=== PATIENT | female | born 1990 | race Caucasian/White ===

== ENCOUNTER 2017-11-23 13:11 | Observation (INO) | payer OTHER ==
[2017-11-23 13:57] LABS: BILIRUBIN,URINE NEGATIVE (NEG); CLARITY,URINE CLEAR; COLOR,URINE YELLOW; GLUCOSE,URINE NEGATIVE (NEG); NITRITE,URINE NEGATIVE (NEG); PROTEIN,URINE NEGATIVE (NEG-TRACE); UROBILINOGEN,URINE 0.2 mg/dL (0.2 mg/dL)
[2017-11-23] MEDS ORDERED: IV RINGERS,LACTATED 1000ML 1,000 ML IV (14:00)
[2017-11-23 14:12] LABS: BACTERIA,URINE FEW /HPF (0-FEW); RBC,URINE OCC /HPF (0-2); SQUAMOUS EPITHELIAL CELL,UR MANY /LPF
[2017-11-23 14:50] LABS: ADD MAN DIFF? NO
[2017-11-23 14:53] LABS: BASO # 0.1 x10^3/uL (0.0-0.2); BASO % 1 % (0-3); EOS # 0.1 x10^3/uL (0.0-0.7); EOS % 1 % (0-3); HEMOGLOBIN 10.7 g/dL (12.0-15.5); LYMPH # 2.7 x10^3/uL (1.0-4.8); LYMPH % 23 % (24-48); MEAN CORPUSCULAR HEMOGLOBIN 27 pg (25-35); MEAN CORPUSCULAR HGB CONC 32 g/dL (31-37); MEAN CORPUSCULAR VOLUME 83 fL (79-100); MONO # 0.5 x10^3/uL (0.0-1.1); MONO % 4 % (0-9); NEUT # 8.5 x10^3uL (1.8-7.7); NEUT % 72 % (31-73); PLATELET COUNT 268 x10^3/uL (140-400); RED CELL DISTRIBUTION WIDTH 13.8 % (11.5-14.5); WHITE BLOOD COUNT 11.9 x10^3/uL (4.0-11.0)
[2017-11-23 15:10] LABS: ALBUMIN 2.2 g/dL (3.4-5.0); ALBUMIN/GLOBULIN RATIO 0.6 (1.0-1.7); ALK PHOS 186 U/L (46-116); ALT (SGPT) 12 U/L (14-59); AMYLASE 41 U/L (25-115); ANION GAP 9 (6-14); AST (SGOT) 15 U/L (15-37); BLOOD UREA NITROGEN 10 mg/dL (7-20); BUN/CREATININE RATIO 14 (6-20); CALCIUM 8.9 mg/dL (8.5-10.1); CARBON DIOXIDE 27 mmol/L (21-32); CHLORIDE 104 mmol/L (98-107); CREATININE 0.7 mg/dL (0.6-1.0); GLUCOSE 73 mg/dL (70-99); LIPASE 77 U/L (73-393); POTASSIUM 4.1 mmol/L (3.5-5.1); SODIUM 140 mmol/L (136-145); TOTAL BILIRUBIN 0.2 mg/dL (0.2-1.0); TOTAL PROTEIN 6.1 g/dL (6.4-8.2)
[2017-11-23] MEDS: LIDO:MAALOX 1:1 20 ML SINGLE DOSE. SWSW (15:29)
== END 2017-11-23 18:00 | disposition home or self-care (01) ==
LOC: 3 SO LND 13:11
DX: O62.9 Abnormality of forces of labor, unspecified (principal); O26.893 Other specified pregnancy related conditions, third trimester; R51 Headache; Z3A.37 37 weeks gestation of pregnancy
CPT/HCPCS: 36415; 80053; 81001; 82150; 83690; 85025; 87086; G0378; G0379

== ENCOUNTER 2017-11-26 18:07 | Inpatient (IN) | payer OTHER ==
[2017-11-26] MEDS ORDERED: OXYTOCIN 30 UNIT/500 ML PREMIX 500 ML IV ×2 (18:45→21:00)
[2017-11-26] MEDS ORDERED: IBUPROFEN 800 MG TABLET. PO (18:45)
[2017-11-26] MEDS ORDERED: LIDOCAINE 1% PF 30 ML VIAL. INJ (18:45)
[2017-11-26] MEDS ORDERED: TERBUTALINE 1 MG/ML VIAL. SQ (18:45)
[2017-11-26] MEDS ORDERED: AMPICILLIN SODIUM 1 GM in IV NORMAL SALINE 50ML 50 ML IV (18:45)
[2017-11-26] MEDS ORDERED: ONDANSETRON PF 4 MG/2 ML VIAL. IV (18:45)
[2017-11-26] MEDS ORDERED: BUTORPHANOL 2 MG/ML VIAL. IV (18:45)
[2017-11-26] MEDS ORDERED: 0.9 % SODIUM CHLORIDE 10 ML DISP.SYRIN. IV ×2 (18:45→21:00)
[2017-11-26] MEDS ORDERED: CITRIC ACID/SODIUM CITRATE 30 ML SOLUTION. PO (18:45)
[2017-11-26 18:53] LABS: BILIRUBIN,URINE NEGATIVE (NEG); CLARITY,URINE CLEAR; COLOR,URINE YELLOW; GLUCOSE,URINE NEGATIVE (NEG); NITRITE,URINE NEGATIVE (NEG); PH,URINE 6.5; PROTEIN,URINE NEGATIVE (NEG-TRACE)
[2017-11-26] MEDS: fentaNYL PF VIAL 100 MCG/2 ML VIAL IV (18:56)
[2017-11-26] MEDS: IV RINGERS,LACTATED 1000ML 1,000 ML IV (18:58)
[2017-11-26] MEDS: AMPICILLIN SODIUM IV Push 1 GM VIAL. IVP (18:58)
[2017-11-26] MEDS ORDERED: AMPICILLIN SODIUM 2 GM in IV NORMAL SALINE 100ML 100 ML IV (19:00)
[2017-11-26] MEDS: AMPICILLIN SODIUM IV Push 2 GM VIAL. IVP (19:00)
[2017-11-26 19:07] LABS: BARBITURATES NEG (NEG); BENZODIAZEPINES NEG (NEG); CANNABINOIDS NEG (NEG); COCAINE NEG (NEG); METHADONE NEG (NEG); OPIATES NEG (NEG); PHENCYCLIDINE NEG (NEG)
[2017-11-26 19:08] LABS: AMPHETAMINE/METHAMPHETAMINE POS (NEG); ETHANOL, URINE NEG (NEG)
[2017-11-26 19:16] LABS: ADD MAN DIFF? NO
[2017-11-26 19:18] LABS: BASO % 0 % (0-3); EOS % 0 % (0-3); HEMATOCRIT 32.3 % (36.0-47.0); HEMOGLOBIN 10.7 g/dL (12.0-15.5); LYMPH # 2.6 x10^3/uL (1.0-4.8); LYMPH % 23 % (24-48); MEAN CORPUSCULAR HEMOGLOBIN 27 pg (25-35); MEAN CORPUSCULAR HGB CONC 33 g/dL (31-37); MEAN CORPUSCULAR VOLUME 81 fL (79-100); MONO # 0.4 x10^3/uL (0.0-1.1); MONO % 4 % (0-9); NEUT # 8.1 x10^3uL (1.8-7.7); NEUT % 72 % (31-73); PLATELET COUNT 280 x10^3/uL (140-400); RED BLOOD COUNT 3.99 x10^6/uL (3.50-5.40); RED CELL DISTRIBUTION WIDTH 13.6 % (11.5-14.5); WHITE BLOOD COUNT 11.2 x10^3/uL (4.0-11.0)
[2017-11-26 19:29] LABS: BACTERIA,URINE FEW /HPF (0-FEW); RBC,URINE RARE /HPF (0-2); WBC,URINE OCC /HPF (0-4)
[2017-11-26 19:30] LABS: SQUAMOUS EPITHELIAL CELL,UR MOD /LPF
[2017-11-26] MEDS: OXYTOCIN 30 UNIT/500 ML PREMIX 500 ML IV (20:09)
[2017-11-26] MEDS ORDERED: MAG HYDROX/ALUMINUM HYD/SIMETH 30 ML ORAL.SUSP PO (21:00)
[2017-11-26] MEDS ORDERED: HYDROCORTISONE 1% TOPICAL OINTMENT 30GM TUBE. TP (21:00)
[2017-11-26] MEDS ORDERED: ZOLPIDEM 5 MG TABLET. PO (21:00)
[2017-11-26] MEDS ORDERED: diphenhydrAMINE HCL 25 MG CAPSULE PO (21:00)
[2017-11-26] MEDS ORDERED: MMR per PROTOCOL. MC (21:00)
[2017-11-26] MEDS ORDERED: ACETAMINOPHEN 325 MG TABLET. PO (21:00)
[2017-11-26] MEDS ORDERED: MAGNESIUM HYDROXIDE 2,400 MG/30 ML ORAL.SUSP. PO (21:00)
[2017-11-26] MEDS ORDERED: PHENYLEPH/MINERAL OIL/PETROLAT RECTAL OINTMENT 28GM TUBE. RC (21:00)
[2017-11-26] MEDS: BENZOCAINE 20% TOPICAL AEROSOL SPRAY 57GM CAN. TP (23:23)
[2017-11-26] MEDS: IBUPROFEN 800 MG TABLET. PO (23:23)
[2017-11-27] MEDS: oxyCODONE/APAP 5/325 1 TAB TABLET PO ×3 (02:43→15:37)
[2017-11-27 05:15] LABS: ADD MAN DIFF? NO
[2017-11-27 05:23] LABS: BASO # 0.1 x10^3/uL (0.0-0.2); BASO % 1 % (0-3); EOS # 0.1 x10^3/uL (0.0-0.7); EOS % 1 % (0-3); HEMATOCRIT 28.7 % (36.0-47.0); HEMOGLOBIN 9.5 g/dL (12.0-15.5); LYMPH % 27 % (24-48); MEAN CORPUSCULAR HEMOGLOBIN 27 pg (25-35); MEAN CORPUSCULAR HGB CONC 33 g/dL (31-37); MEAN CORPUSCULAR VOLUME 82 fL (79-100); MONO # 0.6 x10^3/uL (0.0-1.1); MONO % 5 % (0-9); NEUT # 7.6 x10^3uL (1.8-7.7); NEUT % 67 % (31-73); PLATELET COUNT 231 x10^3/uL (140-400); RED BLOOD COUNT 3.49 x10^6/uL (3.50-5.40); RED CELL DISTRIBUTION WIDTH 13.8 % (11.5-14.5); WHITE BLOOD COUNT 11.3 x10^3/uL (4.0-11.0)
[2017-11-27] MEDS: IBUPROFEN 800 MG TABLET. PO ×2 (08:31→17:44)
[2017-11-27] MEDS: DOCUSATE SODIUM 100 MG CAPSULE. PO (08:31)
[2017-11-27] MEDS: FERROUS SULFATE 325 MG TABLET. PO ×2 (08:32→17:38)
[2017-11-27 22:08] LABS: RUBELLA IGG ANTIBODY <0.90 index (Immune >0.99)
[2017-11-28] MEDS: oxyCODONE/APAP 5/325 1 TAB TABLET PO ×3 (03:29→18:30)
[2017-11-28] MEDS: FERROUS SULFATE 325 MG TABLET. PO ×2 (09:14→18:31)
[2017-11-28] MEDS: DOCUSATE SODIUM 100 MG CAPSULE. PO (09:14)
[2017-11-28] MEDS: IBUPROFEN 800 MG TABLET. PO ×2 (09:17→16:56)
[2017-11-28 11:20] LABS: HEP B SURFACE ABDY Non Reactive (.)
[2017-11-28] MEDS: DIPHTH,PERTUSS(ACELL),TET TOX 0.5 ML DISP.SYRIN. VAX IM (13:47)
[2017-11-28] MEDS: MEASLES, MUMPS & RUBELLA VACC 0.5 ML VIAL. VAX SQ (13:49)
[2017-11-28 16:15] LABS: RPR Non Reactive (Non Reactive)
[2017-11-28] MEDS: SIMETHICONE 80 MG TAB.CHEW PO (16:56)
[2017-11-28] MEDS: BENZOCAINE 20% TOPICAL AEROSOL SPRAY 57GM CAN. TP (18:30)
[2017-11-29 07:36] LABS: HIV ANTIBODY Non Reactive (Non Reactive)
== END 2017-11-28 18:35 | disposition home or self-care (01) | DRG 775 ==
LOC: 3 SO LND 18:07
PROC: 10E0XZZ Delivery of Products of Conception, External Approach (ICD-10-PCS; principal; 2017-11-26)
DX: O77.0 Labor and delivery complicated by meconium in amniotic fluid (principal); Z37.0 Single live birth; Z3A.38 38 weeks gestation of pregnancy
CPT/HCPCS: 36415; 80307; 81001; 85025; 86593; 86703; 86706; 86762; 86850; 86900; 86901; 90707; 90715; G0379; J0290; J2590; J3010; J7120

== ENCOUNTER 2017-11-29 01:04 | Inpatient (IN) | payer OTHER ==
[2017-11-29] MEDS: IV NORMAL SALINE 1000ML BAG 1,000 ML IV ×4 (02:26→04:00)
[2017-11-29 02:30] LABS: BASO % 0 % (0-3); EOS # 0.1 x10^3/uL (0.0-0.7); EOS % 0 % (0-3); HEMATOCRIT 35.7 % (36.0-47.0); HEMOGLOBIN 11.6 g/dL (12.0-15.5); LYMPH # 1.7 x10^3/uL (1.0-4.8); LYMPH % 6 % (24-48); MEAN CORPUSCULAR HEMOGLOBIN 27 pg (25-35); MEAN CORPUSCULAR HGB CONC 33 g/dL (31-37); MEAN CORPUSCULAR VOLUME 83 fL (79-100); MONO # 0.8 x10^3/uL (0.0-1.1); MONO % 3 % (0-9); NEUT # 25.1 x10^3uL (1.8-7.7); NEUT % 90 % (31-73); PLATELET COUNT 303 x10^3/uL (140-400); RED BLOOD COUNT 4.31 x10^6/uL (3.50-5.40); RED CELL DISTRIBUTION WIDTH 14.4 % (11.5-14.5); WHITE BLOOD COUNT 27.7 x10^3/uL (4.0-11.0)
[2017-11-29] MEDS: ACETAMINOPHEN 500 MG TABLET PO ×2 (02:30)
[2017-11-29 02:31] LABS: ADD MAN DIFF? YES
[2017-11-29 02:40] LABS: PROTHROMBIN TIME PATIENT 12.3 SEC (11.7-14.0)
[2017-11-29 02:42] LABS: ANION GAP 7 (6-14); BLOOD UREA NITROGEN 10 mg/dL (7-20); BUN/CREATININE RATIO 11 (6-20); CALCIUM 9.1 mg/dL (8.5-10.1); CARBON DIOXIDE 27 mmol/L (21-32); CHLORIDE 102 mmol/L (98-107); CREATININE 0.9 mg/dL (0.6-1.0); GFR 76.3; GLUCOSE 73 mg/dL (70-99); POTASSIUM 4.4 mmol/L (3.5-5.1); SODIUM 136 mmol/L (136-145)
[2017-11-29 02:47] LABS: ALBUMIN 2.2 g/dL (3.4-5.0); ALBUMIN/GLOBULIN RATIO 0.4 (1.0-1.7); ALK PHOS 173 U/L (46-116); ALT (SGPT) 13 U/L (14-59); AST (SGOT) 26 U/L (15-37); TOTAL BILIRUBIN 0.3 mg/dL (0.2-1.0); TOTAL PROTEIN 7.1 g/dL (6.4-8.2)
[2017-11-29 02:50] LABS: LACTIC ACID 1.7 mmol/L (0.4-2.0)
[2017-11-29] MEDS: PIPERACILLIN/TAZOBACTAM 3.375 GM in IV NORMAL SALINE 50ML 50 ML IV ×3 (03:09→15:00)
[2017-11-29] MEDS: fentaNYL PF VIAL 100 MCG/2 ML VIAL IV ×2 (03:10)
[2017-11-29 03:29] LABS: BILIRUBIN,URINE NEGATIVE (NEG); CLARITY,URINE CLEAR; COLOR,URINE YELLOW; GLUCOSE,URINE NEGATIVE (NEG); NITRITE,URINE NEGATIVE (NEG); PH,URINE 7.5; PROTEIN,URINE NEGATIVE (NEG-TRACE); UROBILINOGEN,URINE 0.2 mg/dL (0.2 mg/dL)
[2017-11-29] MEDS ORDERED: IV NORMAL SALINE 1000ML BAG 1,000 ML IV ×2 (03:30)
[2017-11-29] MEDS ORDERED: fentaNYL PF VIAL 100 MCG/2 ML VIAL IV ×2 (03:30)
[2017-11-29 03:41] LABS: PROCALCITONIN < 0.10 ng/mL (0.00-0.10)
[2017-11-29 03:52] LABS: BACTERIA,URINE 0 /HPF (0-FEW); RBC,URINE 20-40 /HPF (0-2); SQUAMOUS EPITHELIAL CELL,UR FEW /LPF
[2017-11-29 05:41] LABS: % BANDS 4 % (0-9); % LYMPHS 10 % (24-48); % SEGS 86 % (35-66); PLT ESTIMATE ADEQUATE (ADEQUATE)
[2017-11-29] MEDS ORDERED: PHENYLEPH/MINERAL OIL/PETROLAT RECTAL OINTMENT 28GM TUBE. RC ×2 (09:15)
[2017-11-29] MEDS ORDERED: ZOLPIDEM 5 MG TABLET. PO ×2 (09:15)
[2017-11-29] MEDS ORDERED: SIMETHICONE 80 MG TAB.CHEW PO ×2 (09:15)
[2017-11-29] MEDS ORDERED: oxyCODONE/APAP 5/325 1 TAB TABLET PO ×2 (09:15)
[2017-11-29] MEDS ORDERED: diphenhydrAMINE HCL 25 MG CAPSULE PO ×2 (09:15)
[2017-11-29] MEDS ORDERED: 0.9 % SODIUM CHLORIDE 10 ML DISP.SYRIN. IV ×2 (09:15)
[2017-11-29] MEDS ORDERED: MAG HYDROX/ALUMINUM HYD/SIMETH 30 ML ORAL.SUSP PO ×2 (09:15)
[2017-11-29] MEDS ORDERED: MMR per PROTOCOL. MC ×2 (09:15)
[2017-11-29] MEDS ORDERED: HYDROCORTISONE 1% TOPICAL OINTMENT 30GM TUBE. TP ×2 (09:15)
[2017-11-29] MEDS ORDERED: BENZOCAINE 20% TOPICAL AEROSOL SPRAY 57GM CAN. TP ×2 (09:15)
[2017-11-29] MEDS ORDERED: MAGNESIUM HYDROXIDE 2,400 MG/30 ML ORAL.SUSP. PO ×2 (09:15)
[2017-11-29] MEDS ORDERED: OXYTOCIN 30 UNIT/500 ML PREMIX 500 ML IV ×2 (09:15)
[2017-11-29] MEDS: DOCUSATE SODIUM 100 MG CAPSULE. PO ×2 (10:09)
[2017-11-29] MEDS: ACETAMINOPHEN 325 MG TABLET. PO ×2 (10:10)
[2017-11-29] MEDS: IBUPROFEN 600 MG TABLET. PO ×2 (11:22)
[2017-11-29] MEDS ORDERED: LACTOBACILLUS RHAMNOSUS GG 1 CAPSULE. PO ×2 (21:00)
[2017-11-30] MEDS ORDERED: FERROUS SULFATE 325 MG TABLET. PO ×2 (08:00)
== END 2017-11-29 18:20 | disposition home or self-care (01) | DRG 776 ==
LOC: ER 01:04 → 3 SO LND 03:15
DX: O86.12 Endometritis following delivery (principal); Z90.49 Acquired absence of other specified parts of digestive tract
CPT/HCPCS: 36415; 71045; 80053; 81001; 83605; 84145; 85007; 85025; 85610; 87040; 87070; 87086; 87205; 96361; 96365; 96375; 96376; 99285-25; G0378; G0379; J2543; J3010; J7030

== ENCOUNTER 2018-04-07 16:31 | Emergency (ER) | payer SELFPAY ==
[~2018-04-07] VITALS: Ht 170.2 cm; Wt 95.3 kg
[~2018-04-07 16:31] MED LIST: IBUP800T19 PO
[2018-04-07 16:57] VITALS: BP 118/62
[2018-04-07] MEDS ORDERED: DEXAMETHASONE 4 MG TABLET PO ONE (17:00)
[2018-04-07] MEDS ORDERED: IPRATRPIUM/ALBUTEROL 0.5/2.5MG 3 ML NEBU. NEB ONE (17:00)
--- NOTE | 2018-04-07 17:29 | PHYS DOC ---
Past Medical History Past Medical History: No Pertinent History Past Surgical History: Cholecystectomy Additional Past Surgical Histo: left knee Alcohol Use: Occasionally Drug Use: None, Amphetamine, Phencyclidine Adult General Chief Complaint Chief Complaint: SHORTNESS OF BREATH HPI HPI Patient is a 28 year old Female who presents with shortness of air that started today was intermittent and now has become worse. Patient states she has not been home but has been outside a lot lately. Patient states she has chest tightness and chest patient rates out of 10. Patient dates that she usually uses her albuterol inhaler almost a daily for her asthma and allergy symptoms. Patient states she has not been home and has not had her albuterol inhaler to use. Patient states she does smoke cigarettes but denies drug use or alcohol use. Review of Systems Review of Systems Constitutional: Denies fever or chills [] Eyes: Denies change in visual acuity, redness, or eye pain [] HENT: Denies nasal congestion or sore throat [] Respiratory: Denies cough. Shortness of breath [] Cardiovascular: No additional information not addressed in HPI [] GI: Denies abdominal pain, nausea, vomiting, bloody stools or diarrhea [] : Denies dysuria or hematuria [] Musculoskeletal: Denies back pain or joint pain [] Integument: Denies rash or skin lesions [] Neurologic: Denies headache, focal weakness or sensory changes [] Endocrine: Denies polyuria or polydipsia [] All other systems were reviewed and found to be within normal limits, except as documented in this note. Current Medications Current Medications Current Medications Medications (Trade) Dose Ordered Sig/[facility] Start Time Stop Time Status Last Admin Dose Admin Albuterol/ Ipratropium (Duoneb) 3 ml 1X ONCE 04/07/18 17:00 04/07/18 17:01 DC 04/07/18 17:09 3 ML Dexamethasone (Decadron) 6 mg 1X ONCE 04/07/18 17:00 04/07/18 17:01 DC 04/07/18 17:00 6 MG Allergies Allergies Allergies Coded Allergies Type Severity Reaction Last Updated Verified No Known Drug Allergies 03/08/15 No Physical Exam Physical Exam Constitutional: Well developed, well nourished, no acute distress, non-toxic appearance. [] HENT: Normocephalic, atraumatic, bilateral external ears normal, oropharynx moist, no oral exudates, nose normal. [] Eyes: PERRLA, EOMI, conjunctiva normal, no discharge. [] Neck: Normal range of motion, no tenderness, supple, no stridor. [] Cardiovascular:Heart rate regular rhythm, no murmur [] Lungs & Thorax: Bilateral upper breath sounds are clear but bilateral lower lung sounds are diminished. Chest wall tenderness across chest. Abdomen: Bowel sounds normal, soft, no tenderness, no masses, no pulsatile masses. [] Skin: Warm, dry, no erythema, no rash. [] Back: No tenderness, no CVA tenderness. [] Extremities: No tenderness, no cyanosis, no clubbing, ROM intact, no edema. [] Neurologic: Alert and oriented X 3, normal motor function, normal sensory function, no focal deficits noted. [] Psychologic: Affect normal, judgement normal, mood normal. [] Current Patient Data Vital Signs Vital Signs Date Time Temp Pulse Resp B/P (MAP) Pulse Ox O2 Delivery O2 Flow Rate FiO2 04/07/18 16:57 98.6 85 16 118/62 (80) 99 Room Air 98.6 Lab Values Laboratory Tests Test 04/07/18 17:20 Urine Test Negative (NEG) Urine Opiates Screen Neg (NEG) Urine Methadone Screen Neg (NEG) Urine Barbiturates Neg (NEG) Urine Phencyclidine Screen Neg (NEG) Urine Amphetamine/Methamphetamine Pos (NEG) Urine Benzodiazepines Screen Neg (NEG) Urine Cocaine Screen Pos (NEG) Urine Cannabinoids Screen Neg (NEG) Urine Ethyl Alcohol Neg (NEG) EKG EKG [] Radiology/Procedures Radiology/Procedures Chest x ray Impressions: Patient refused Course & Med Decision Making Course & Med Decision Making Patient is a 28 year old Female who presents with shortness of air that started today was intermittent and now has become worse. Patient states she has not been home but has been outside a lot lately. Patient states she has chest tightness and chest patient rates 8 out of 10. Patient dates that she usually uses her albuterol inhaler almost a daily for her asthma and allergy symptoms. Patient states she has not been home and has not had her albuterol inhaler to use. Patient states she does smoke cigarettes but denies drug use or alcohol use. Patient is sating 97% on room air, blood pressure is 118/62, respirations are 22. Patient speaks in full sentences. Patient denies dizziness, cough, nausea, vomiting, diarrhea, and no recent illness. Patient does state that her allergies were acting up. Patient does have bilateral chest wall tenderness with palpation. Patient denies allergies to any medications. Patient has no extremity edema. Patient skin is pink, warm and dry. Patient is given Dexamethasone and a DuoNeb treatment and the ED. Patient is neurologically intact and in no distress. Bilateral upper lungs are clear to auscultation but bilateral lower lobes are diminished. After breathing treatment. Patient's lungs are clear. Patient vital signs are normal she states she feels a lot better. Patient is steady on her feet and speaks in full sentences. Patient is refusing chest x-ray and I told her that since she has been living outside and does not have any of her allergy or asthma medications that I do not know how her lungs look and I cannot check for anything acute. Patient states that her boyfriend already called there ride in that she is rather just follow up with her doctors in is now refusing the chest x-ray. I told patient that I will give her a prescription for a albuterol inhaler that she cannot get the one that she has and I will give her a prescription for prednisone that she can start in 2 days. I told the patient she must follow up at her primary care tomorrow and she agrees to this. Patient is discharged in stable condition. [] Dragon Disclaimer Dragon Disclaimer This electronic medical record was generated, in whole or in part, using a voice recognition dictation system. Departure Departure Impression: Primary Impression: Asthma Disposition: 01 HOME, SELF-CARE Condition: STABLE Referrals: FLORESITA ORTEZ MD (PCP) Patient Instructions: Asthma, Adult Additional Instructions: Follow up with your primary care. Scripts Albuterol Sulfate (PROAIR HFA INHALER) 8.5 Gm Hfa.aer.ad 1 PUFF INH PRN Q6HRS PRN for SHORTNESS OF BREATH, #1 INHALER 0 Refills Prov: FRANCIE SORIA SCLEROSCOPE TESTER 04/07/18 Prednisone (PREDNISONE) 50 Mg Tablet 1 TAB PO DAILY, #4 TAB Prov: FRANCIE SORIA SCLEROSCOPE TESTER 04/07/18 Problem Qualifiers Primary Impression: Asthma Asthma severity: mild Asthma persistence: intermittent Asthma complication type: uncomplicated Qualified Codes: J45.20 - Mild intermittent asthma, uncomplicated BAFUS,FRANCIE M SCLEROSCOPE TESTER Apr 07, 2018 17:29
[2018-04-07 17:44] LABS: U PREG PATIENT NEGATIVE (NEG)
[2018-04-07 17:48] LABS: BARBITURATES NEG (NEG); BENZODIAZEPINES NEG (NEG); CANNABINOIDS NEG (NEG); COCAINE POS (NEG); METHADONE NEG (NEG); OPIATES NEG (NEG); PHENCYCLIDINE NEG (NEG)
[2018-04-07 17:50] LABS: AMPHETAMINE/METHAMPHETAMINE POS (NEG)
[2018-04-07] MEDS ORDERED: PROAIR HFA8.5 GM INH (18:10)
[2018-04-07] MEDS ORDERED: PRED50TA PO (18:10)
== END 2018-04-07 18:27 | disposition home or self-care (01) ==
LOC: ER 16:31
DX: J45.909 Unspecified asthma, uncomplicated (principal); Z90.49 Acquired absence of other specified parts of digestive tract
CPT/HCPCS: 80307; 81025; 94640; 99284; J7620; J8540; G0479

== ENCOUNTER 2018-12-24 15:53 | Inpatient (IN) | payer MEDICAID, SELFPAY ==
[~2018-12-24] VITALS: Ht 170.2 cm; Wt 117.9 kg
[~2018-12-24 15:53] MED LIST changes: +ALBU2.5V8 INH; +PRED50TA PO
[2018-12-24] MEDS ORDERED: ACETAMINOPHEN 325 MG TABLET. PO PRN (16:00)
[2018-12-24] MEDS ORDERED: ONDANSETRON PF 4 MG/2 ML VIAL. IV PRN (16:00)
[2018-12-24 16:24] LABS: BILIRUBIN,URINE NEGATIVE (NEG); CLARITY,URINE CLEAR; COLOR,URINE YELLOW; NITRITE,URINE NEGATIVE (NEG); PROTEIN,URINE NEGATIVE (NEG-TRACE); UROBILINOGEN,URINE 0.2 mg/dL (0.2 mg/dL)
[2018-12-24 16:28] LABS: AMPHETAMINE/METHAMPHETAMINE POS (NEG); BARBITURATES NEG (NEG); BENZODIAZEPINES NEG (NEG); CANNABINOIDS NEG (NEG); COCAINE NEG (NEG); METHADONE NEG (NEG); OPIATES NEG (NEG); PHENCYCLIDINE POS (NEG)
[2018-12-24 16:46] LABS: BACTERIA,URINE 0 /HPF (0-FEW); RBC,URINE 0 /HPF (0-2); SQUAMOUS EPITHELIAL CELL,UR MOD /LPF
[2018-12-24 17:08] LABS: BASO # 0.1 x10^3/uL (0.0-0.2); BASO % 0 % (0-3); EOS # 0.2 x10^3/uL (0.0-0.7); EOS % 1 % (0-3); HEMATOCRIT 33.4 % (36.0-47.0); HEMOGLOBIN 10.7 g/dL (12.0-15.5); LYMPH # 2.7 x10^3/uL (1.0-4.8); LYMPH % 17 % (24-48); MEAN CORPUSCULAR HEMOGLOBIN 27 pg (25-35); MEAN CORPUSCULAR HGB CONC 32 g/dL (31-37); MEAN CORPUSCULAR VOLUME 85 fL (79-100); MONO # 0.6 x10^3/uL (0.0-1.1); MONO % 4 % (0-9); NEUT # 12.4 x10^3uL (1.8-7.7); NEUT % 77 % (31-73); PLATELET COUNT 303 x10^3/uL (140-400); RED BLOOD COUNT 3.94 x10^6/uL (3.50-5.40); RED CELL DISTRIBUTION WIDTH 13.1 % (11.5-14.5)
[2018-12-24] MEDS ORDERED: OXYTOCIN 30 UNIT/500 ML PREMIX 500 ML IV PRN ×3 (17:15)
[2018-12-24] MEDS ORDERED: TERBUTALINE 1 MG/ML VIAL. SQ PRN (17:15)
[2018-12-24] MEDS ORDERED: 0.9 % SODIUM CHLORIDE 10 ML DISP.SYRIN. IV PRN (17:15)
[2018-12-24] MEDS ORDERED: LIDOCAINE 1% PF 30 ML VIAL. INJ PRN (17:15)
[2018-12-24] MEDS: IV RINGERS,LACTATED 1000ML 1,000 ML IV SCH (17:34)
[2018-12-24] MEDS ORDERED: PENICILLIN G K 5,000,000 UNIT in IV DEXTROSE 5% 100ML 100 ML IV ONE (18:00)
[2018-12-24] MEDS ORDERED: FAMOTIDINE 20 MG TABLET. PO ONE (18:30)
[2018-12-24 18:54] VITALS: BP 114/68
[2018-12-24] MEDS: PENICILLIN G K 2,500,000 UNIT in IV DEXTROSE 5% 50 ML IV SCH (21:59)
[2018-12-24] MEDS ORDERED: ROPIVacaine 0.2% PF 10 ML VIAL. ONE ×2 (23:25→23:33)
[2018-12-24] MEDS ORDERED: L&D EPIDURAL SYRINGE 50 ML ONE (23:25)
[2018-12-25] MEDS: L&D EPIDURAL SYRINGE 50 ML EPID PRN ×4 (00:14→07:47)
[2018-12-25] MEDS ORDERED: NALOXONE 0.4 MG/ML VIAL. IV PRN (00:15)
[2018-12-25] MEDS ORDERED: ROPIVacaine 0.2% IN 0.9%NACL PF 40 MG/20 ML DISP.SYRIN. EPID PRN (00:15)
[2018-12-25] MEDS ORDERED: IV RINGERS,LACTATED 1000ML 1,000 ML IV SCH (00:15)
[2018-12-25] MEDS ORDERED: ePHEDrine PF IN SALINE 50 MG/10 ML SYRINGE. IV PRN (00:15)
[2018-12-25] MEDS: IV RINGERS,LACTATED 1000ML 1,000 ML IV SCH (02:25)
[2018-12-25] MEDS: PENICILLIN G K 2,500,000 UNIT in IV DEXTROSE 5% 50 ML IV SCH ×2 (02:37→06:44)
[2018-12-25] MEDS ORDERED: LIDOCAINE 2% PF 5 ML VIAL. ONE ×2 (04:36→08:30)
[2018-12-25] MEDS ORDERED: fentaNYL PF VIAL 100 MCG/2 ML VIAL ONE ×2 (04:53→08:30)
[2018-12-25] MEDS ORDERED: fentaNYL PF VIAL 100 MCG/2 ML VIAL IV PRN (05:00)
[2018-12-25] MEDS ORDERED: miSOPROStol 200 MCG TABLET ONE (07:59)
[2018-12-25] MEDS ORDERED: IBUPROFEN 400 MG TABLET. PO PRN (09:45)
[2018-12-25] MEDS ORDERED: diphenhydrAMINE HCL 25 MG CAPSULE PO PRN (09:45)
[2018-12-25] MEDS ORDERED: SIMETHICONE 80 MG TAB.CHEW PO PRN (09:45)
[2018-12-25] MEDS ORDERED: OXYTOCIN 30 UNIT/500 ML PREMIX 500 ML IV PRN (09:45)
[2018-12-25] MEDS ORDERED: MAGNESIUM HYDROXIDE 2,400 MG/30 ML ORAL.SUSP. PO PRN (09:45)
[2018-12-25] MEDS ORDERED: HYDROCORTISONE 1% TOPICAL OINTMENT 30GM TUBE. TP PRN (09:45)
[2018-12-25] MEDS ORDERED: ZOLPIDEM 5 MG TABLET. PO PRN (09:45)
[2018-12-25] MEDS ORDERED: PHENYLEPH/MINERAL OIL/PETROLAT RECTAL OINTMENT 57GM TUBE. RC PRN (09:45)
[2018-12-25] MEDS ORDERED: BENZOCAINE 20% TOPICAL AEROSOL SPRAY 57GM CAN. TP PRN (09:45)
[2018-12-25] MEDS ORDERED: 0.9 % SODIUM CHLORIDE 10 ML DISP.SYRIN. IV PRN (09:45)
[2018-12-25] MEDS ORDERED: ACETAMINOPHEN 325 MG TABLET. PO PRN (09:45)
--- NOTE | 2018-12-25 09:53 | PDOC1 ---
OB - History Hx of Present Care: Limited Care Ultrasounds: Abnormal US findings (oligo) Obstetrical Complications: None Medical Complications: Other (SA) Past Family/Social History * Past Medical, Surgical, Family and Obstetric Histories reviewed from chart. Blood Type: Unknown Rubella: Unknown RPR/VDRL: Unknown GBS Status: Unknown HBsAG: Unknown OB - Chief Complaint & HPI Date of Admission: Date of Admission: Dec 24, 2018 at 15:53 Chief Complaint/History : 5 Para: 4 EGA: 35/4 Reason for admission: active labor, induction of labor, other (oligo) Indication for induction: other (oligo) Admission Nurse Assessment Rev: Yes OB - Admission Exam Physical Exam Vitals: VS - Last 72 Hours, by Label Date Time Temp Pulse Resp B/P (MAP) Pulse Ox O2 Delivery O2 Flow Rate FiO2 12/25/18 07:47 16 12/25/18 06:11 20 Room Air 12/25/18 04:52 20 Room Air 12/25/18 02:39 20 Room Air 12/25/18 00:14 22 99 Room Air 12/24/18 18:54 97.9 114 18 114/68 (83) 97.9 HEENT: Normal, Nasal Mucosa Normal, Oropharynx Normal, Moist Membranes, Fontanelles Normal Heart: Regular Rate Lungs: Clear Abdomen: Gravid Extremities: Normal Pulses, No tenderness or swelling Reflexes: Normal Effacement: 75% Membranes: Intact Amniotic Fluid: Thick Meconium Heart Rate: Normal Accelerations: Accelerations Present Decelerations: No decelerations Contractions on Admission: 6-10 Minutes Apart Intensity: Moderate Assessment/Plan Assessment/Plan 35/4 IUP [place] ?SROM Augment ACSVD STEVE FRANCO MD Dec 25, 2018 09:53
--- NOTE | 2018-12-25 09:54 | PDOC ---
VAGINAL DELIVERY DATE DATE: 12/25/18 TIME: 09:53 : 5 Para: 4 EGA: 35 VAGINAL DELIVERY: VTX VACCUM ASSISTED: No PLACENTA: Spontaneous SEX: Male WEIGHT Weight [ ] Nuchal Cord: No PAIN: Epidural EPISIOTOMY: No EXTENSION: No EBL 300cc COMPLICATIONS None CONDITION Stable Signs of Intrauterine Infectio: None Shoulder Dystocia: No DIAGNOSIS STEVE Saeed MD Dec 25, 2018 09:54
--- NOTE | 2018-12-25 11:25 | RAD ---
Examination: Obstetric ultrasound limited HISTORY: Leaking fluid ,amniotic fluid index COMPARISON: None available. This is a downtime report dictated the next day as the PACS was down on the day of examination. Report was called to the ordering physician immediately after time of examination. Findings/ impression: Ultrasound was performed to assess for amniotic fluid. Amniotic fluid is not evident. The amniotic fluid index appears to be 0. presentation is vertex. heart rate 141 bpm. L & D nurse was informed at time of examination. Electronically signed by: Josh Garza MD (12/25/2018 11:22 AM) [place] [id number]
[2018-12-25] MEDS: IBUPROFEN 400 MG TABLET. PO PRN ×3 (11:46→22:47)
[2018-12-25 13:11] VITALS: BP 151/82
[2018-12-25] MEDS: IBUPROFEN 400 MG TABLET. PO SCH ×2 (14:00→22:00)
[2018-12-25 14:15] VITALS: BP 139/82
--- NOTE | 2018-12-25 14:18 | NUR ---
SS following up with referral regarding "adoption, positive UDS." SS reviewed chart. Infants mother positive for methamphetamines and PCP in this admission. RN notified SS that adoption agency office services representative was in room meeting with mother. SS met with mother and adoption agency office services representative in room to assess circumstances surrounding the referral. Selin Maciej from [facility], , present. She reported that mother has been working with her and potential adoptive parents Maricruz and Agustin Chen. She reported that adoptive parents would come to the hospital at 1530 to meet infant. SS discussed positive drug screen for meth and PCP and notified infants mother that DCF hotline would be made. Infants mother reported that she has an open case with DCF and has four other children in custody. Infants RN notified. DCF hotline report made. Intake# [id number]. Adoption agency e-mailed SS copies of the adoption agreement. Copies placed on and mother's chart. SS will continue to follow.
--- NOTE | 2018-12-25 15:56 | NUR ---
SS received phone contact from DCF worker, Marianela Ibarra, , requesting copy of adoption information sent to SS from adoption agency. SS faxed requested information to DCF worker at fax [phone]. RN notified.
[2018-12-25 16:10] VITALS: BP 116/62
[2018-12-25] MEDS ORDERED: FERROUS SULFATE 325 MG TABLET. PO SCH (17:00)
[2018-12-25] MEDS ORDERED: oxyCODONE/APAP 5/325 1 TAB TABLET PO PRN (18:30)
[2018-12-25] MEDS: oxyCODONE/APAP 5/325 1 TAB TABLET PO PRN ×2 (18:34→22:47)
[2018-12-25 20:07] VITALS: BP 125/66
[2018-12-25] MEDS: MAG HYDROX/ALUMINUM HYD/SIMETH 30 ML ORAL.SUSP PO PRN (22:02)
[2018-12-25 23:47] VITALS: BP 112/66
[2018-12-26] MEDS: IBUPROFEN 400 MG TABLET. PO PRN (05:13)
[2018-12-26] MEDS: oxyCODONE/APAP 5/325 1 TAB TABLET PO PRN ×3 (05:16→16:54)
[2018-12-26] MEDS: IBUPROFEN 400 MG TABLET. PO SCH ×2 (05:48→15:59)
[2018-12-26 08:00] VITALS: BP 118/79
--- NOTE | 2018-12-26 08:19 | PDOC ---
OB Progress Note Date of Service 12/26/18 Time of Evaluation 0810 Notes Pt. feeling well. She reports labial lesion that is self draining. Lab Laboratory Tests Test 12/24/18 16:02 12/24/18 16:50 12/24/18 16:56 12/26/18 06:37 Urine Collection Type Unknown Urine Color Yellow Urine Clarity Clear Urine pH 7.0 Urine Specific [place] 1.015 Urine Protein Negative mg/dL (NEG-TRACE) Urine Glucose (UA) Negative mg/dL (NEG) Urine Ketones (Stick) Negative mg/dL (NEG) Urine Blood Moderate (NEG) Urine Nitrite Negative (NEG) Urine Bilirubin Negative (NEG) Urine Urobilinogen Dipstick 0.2 mg/dL (0.2 mg/dL) Urine Leukocyte Esterase Moderate (NEG) Urine RBC 0 /HPF (0-2) Urine WBC 11-20 /HPF (0-4) Urine Squamous Epithelial Cells Mod /LPF Urine Bacteria 0 /HPF (0-FEW) Urine Mucus Mod /LPF Urine Opiates Screen Neg (NEG) Urine Methadone Screen Neg (NEG) Urine Barbiturates Neg (NEG) Urine Phencyclidine Screen Pos (NEG) Urine Amphetamine/Methamphetamine Pos (NEG) Urine Benzodiazepines Screen Neg (NEG) Urine Cocaine Screen Neg (NEG) Urine Cannabinoids Screen Neg (NEG) Urine Ethyl Alcohol Neg (NEG) Treponema pallidum Antibody Nonreactive (Nonreactive) Hepatitis B Surface Antigen Nonreactive (Nonreactive) HIV (1&2) Antibody Screen Nonreactive (Nonreactive) Rubella IgG Antibody <0.90 index (Immune >0.99) White Blood Count 16.0 x10^3/uL (4.0-11.0) Red Blood Count 3.94 x10^6/uL (3.50-5.40) Hemoglobin 10.7 g/dL (12.0-15.5) Hematocrit 33.4 % (36.0-47.0) 30.3 % (36.0-47.0) Mean Corpuscular Volume 85 fL (79-100) Mean Corpuscular Hemoglobin 27 pg (25-35) Mean Corpuscular Hemoglobin Concent 32 g/dL (31-37) Red Cell Distribution Width 13.1 % (11.5-14.5) Platelet Count 303 x10^3/uL (140-400) Neutrophils (%) (Auto) 77 % (31-73) Lymphocytes (%) (Auto) 17 % (24-48) Monocytes (%) (Auto) 4 % (0-9) Eosinophils (%) (Auto) 1 % (0-3) Basophils (%) (Auto) 0 % (0-3) Neutrophils # (Auto) 12.4 x10^3uL (1.8-7.7) Lymphocytes # (Auto) 2.7 x10^3/uL (1.0-4.8) Monocytes # (Auto) 0.6 x10^3/uL (0.0-1.1) Eosinophils # (Auto) 0.2 x10^3/uL (0.0-0.7) Basophils # (Auto) 0.1 x10^3/uL (0.0-0.2) Laboratory Tests Test 12/26/18 06:37 Hematocrit 30.3 % (36.0-47.0) Medications Current Medications Ringer's Solution 1,000 ml @ 125 mls/hr Q8H IV Last administered on 12/25/18at 02:25; Start 12/24/18 at 15:59; Stop 12/25/18 at 11:59; Status DC Acetaminophen (Tylenol) 650 mg PRN Q6HRS PRN PO TEMP > 100.5'F; Start 12/24/18 at 16:00 Ondansetron HCl (Zofran) 4 mg PRN Q6HRS PRN IV NAUSEA; Start 12/24/18 at 16:00; Stop 12/25/18 at 11:59; Status DC Sodium Chloride (Normal Saline Flush) 3 ml QSHIFT PRN IV AFTER MEDS AND BLOOD DRAWS; Start 12/24/18 at 17:15; Stop 12/25/18 at 11:59; Status DC Terbutaline Sulfate (Brethine) 0.25 mg 1X PRN PRN SQ SEE COMMENTS; Start 12/24/18 at 17:15; Stop 12/25/18 at 11:59; Status DC Lidocaine HCl (Xylocaine 1% Pf 30ml Vial) 30 ml 1X PRN PRN INJ SEE COMMENTS; Start 12/24/18 at 17:15; Stop 12/25/18 at 11:59; Status DC Oxytocin/Sodium Chloride 500 ml @ 0 mls/hr CONT PRN IV SEE I/O RECORD Last administered on 12/24/18at 17:47; Start 12/24/18 at 17:15; Stop 12/25/18 at 11:59; Status DC Oxytocin/Sodium Chloride 500 ml @ 0 mls/hr CONT PRN IV SEE I/O RECORD; Start 12/24/18 at 17:15; Stop 12/25/18 at 11:59; Status DC Oxytocin/Sodium Chloride 500 ml @ 0 mls/hr CONT PRN PRN IV Post delivery bleeding; Start 12/24/18 at 17:15 Ibuprofen (Motrin) 800 mg PRN Q6HRS PRN PO PAIN Last administered on 12/26/18at 05:13; Start 12/24/18 at 17:15 Penicillin G Potassium 1823401 unit/Dextrose 100 ml @ 100 mls/hr 1X ONCE IV ; Start 12/24/18 at 18:00; Stop 12/25/18 at 11:59; Status DC Penicillin G Potassium [id number] unit/Dextrose 50 ml @ 100 mls/hr Q4H IV Last administered on 12/25/18at 06:44; Start 12/24/18 at 22:00; Stop 12/25/18 at 11:59; Status DC Famotidine (Pepcid) 20 mg 1X ONCE PO Last administered on 12/24/18at 18:28; Start 12/24/18 at 18:30; Stop 12/24/18 at 18:31; Status DC Ropivacaine (Naropin 0.2%) 10 ml STK-MED ONCE .ROUTE ; Start 12/24/18 at 23:25; Stop 12/25/18 at 11:59; Status DC Ropivacaine/ Fentanyl/NS 50 ml @ As Directed STK-MED ONCE .ROUTE ; Start 12/24/18 at 23:25; Stop 12/25/18 at 11:59; Status DC Ringer's Solution 1,000 ml @ 1,000 mls/hr Q1H IV Last administered on 12/25/18at 07:40; Start 12/25/18 at 00:15; Stop 12/25/18 at 01:14; Status DC Ephedrine Sulfate (ePHEDrine PF IN SALINE SYRINGE) 10 mg PRN Q2MIN PRN IV IF SBP<90; Start 12/25/18 at 00:15; Stop 12/25/18 at 11:59; Status DC Naloxone HCl (Narcan) 0.04 mg PRN Q1MIN PRN IV SEE COMMENTS; Start 12/25/18 at 00:15; Stop 12/25/18 at 11:59; Status DC Ropivacaine/ Fentanyl/NS 50 ml @ 14 mls/hr CONT PRN EPID PAIN Last administered on 12/25/18at 07:47; Start 12/25/18 at 00:15; Stop 12/25/18 at 11:59; Status DC Ropivacaine/ Sodium Chloride (ROPIVacaine 0.2% - 0.9%NACL PF) 40 mg 1X PRN PRN EPID PER ANESTHESIA; Start 12/25/18 at 00:15; Stop 12/25/18 at 11:59; Status DC Lidocaine HCl (Lidocaine Pf 2% Vial) 5 ml STK-MED ONCE .ROUTE ; Start 12/25/18 at 04:36; Stop 12/25/18 at 11:59; Status DC Fentanyl Citrate (Fentanyl 2ml Vial) 100 mcg STK-MED ONCE .ROUTE ; Start 12/25/18 at 04:53; Stop 12/25/18 at 11:59; Status DC Fentanyl Citrate (Fentanyl 2ml Vial) 100 mcg PRN Q10MIN PRN IV Labor pain Last administered on 12/25/18at 06:11; Start 12/25/18 at 05:00; Stop 12/25/18 at 11:59; Status DC Misoprostol (Cytotec 200mcg Tab) 200 mcg STK-MED ONCE .ROUTE ; Start 12/25/18 at 07:59; Stop 12/25/18 at 11:59; Status DC Lidocaine HCl (Lidocaine Pf 2% Vial) 5 ml STK-MED ONCE .ROUTE ; Start 12/25/18 at 08:30; Stop 12/25/18 at 11:59; Status DC Fentanyl Citrate (Fentanyl 2ml Vial) 100 mcg STK-MED ONCE .ROUTE ; Start 12/25/18 at 08:30; Stop 12/25/18 at 11:59; Status DC Ropivacaine (Naropin 0.2%) 10 ml STK-MED ONCE .ROUTE ; Start 12/24/18 at 23:33; Stop 12/25/18 at 11:59; Status DC Sodium Chloride (Normal Saline Flush) 10 ml QSHIFT PRN IV AFTER MEDS AND BLOOD DRAWS; Start 12/25/18 at 09:45; Stop 12/25/18 at 11:59; Status DC Oxytocin/Sodium Chloride 500 ml @ 62.5 mls/hr CONT PRN IV SEE I/O RECORD; Start 12/25/18 at 09:45; Stop 12/25/18 at 17:44; Status DC Acetaminophen (Tylenol) 650 mg PRN Q6HRS PRN PO MILD PAIN / TEMP; Start 12/25/18 at 09:45; Status UNV Ibuprofen (Motrin) 800 mg Q8HRS PO ; Start 12/25/18 at 14:00 Ibuprofen (Motrin) 800 mg PRN Q8HRS PRN PO INFLAMMATION/PAIN PREVENTION; Start 12/25/18 at 09:45; Status UNV Magnesium Hydroxide (Milk Of Magnesia) 2,400 mg PRN DAILY PRN PO CONSTIPATION; Start 12/25/18 at 09:45 Al Hydroxide/Mg Hydroxide (Mylanta Plus Xs) 30 ml PRN Q4HRS PRN PO HEARTBURN / GAS Last administered on 12/25/18at 22:02; Start 12/25/18 at 09:45 Simethicone (Gas-X) 80 mg PRN AFTMEALHC PRN PO GAS / BLOATING; Start 12/25/18 at 09:45 Diphenhydramine HCl (Benadryl) 25 mg PRN Q6HRS PRN PO ITCHING; Start 12/25/18 at 09:45 Benzocaine (Americaine) 1 spray PRN QID PRN TP TOPICAL PAIN Last administered on 12/25/18at 11:48; Start 12/25/18 at 09:45 Phenyleph/Shark Oil/Min Oil/Petrol (Preparation H) 1 evangelist PRN QID PRN RC RECTAL PAIN; Start 12/25/18 at 09:45 Hydrocortisone (Cortaid) 1 evangelist PRN QID PRN TP PERINEAL PAIN; Start 12/25/18 at 09:45 Ferrous Sulfate (Feosol) 325 mg BIDWMEALS PO ; Start 12/25/18 at 17:00 Zolpidem Tartrate (Ambien) 5 mg PRN QHS PRN PO INSOMNIA, MAY REPEAT X1; Start 12/25/18 at 09:45 Info (Do NOT chart on this placeholder) 1 ea 1X PRN PRN MC SEE COMMENTS; Start 12/25/18 at 09:45 Oxycodone/ Acetaminophen (Percocet 5/325) 1 tab PRN Q4HRS PRN PO PAIN MILD TO MOD; Start 12/25/18 at 18:30 Oxycodone/ Acetaminophen (Percocet 5/325) 2 tab PRN Q4HRS PRN PO PAIN SEVERE Last administered on 12/26/18at 05:16; Start 12/25/18 at 18:30 Active Scripts Active Proair Hfa Inhaler (Albuterol Sulfate) 8.5 Gm Hfa.aer.ad 1 Puff INH PRN Q6HRS PRN Prednisone 50 Mg Tablet 1 Tab PO DAILY Ibuprofen 800 Mg Tablet 800 Mg PO PRN Q8HRS PRN Exam Abd: soft, non tender, fundus firm Pelvic: Right labia with inclusion cyst self draining. No signs of infection. Assessment A: PPD#1 s/p Plan of Care: Continue current Tx, Mgmt JAMIE RUBIO Jr, MD Dec 26, 2018 08:19
--- NOTE | 2018-12-26 09:08 | NUR ---
Rubella testing non-immune. Patient educated on testing and vaccine and states she does not want the vaccine.
[2018-12-26 12:19] VITALS: BP 110/68
[2018-12-26] MEDS: MAG HYDROX/ALUMINUM HYD/SIMETH 30 ML ORAL.SUSP PO PRN (13:51)
--- NOTE | 2018-12-26 15:17 | NUR ---
SS following up with discharge planning. SS contacted DCF worker, Marianela Ibarra, , to follow up. Marianela stated that she spoke with the adoption agency and adoptive parents and they do plan to follow through with the adoption. She reported that at this time DCF sees no need for involvement as the adoption is legal. SS met with adoption human services case manager and adoptive parents in room and received all legal paperwork to include moms relinquishment of rights, custody paperwork, and power of collections attorney paperwork for the adoptive parents. All paperwork copied and placed in mother and chart. Mother RN notified. RN not available at this time.
--- NOTE | 2018-12-26 17:09 | NUR ---
C/o Right hip and groin pain. Dr Hardy called, went to tell patient what he said and patient is asleep snoring. Will monitor.
[2018-12-26 21:48] VITALS: BP 111/46
[2018-12-27] MEDS: IBUPROFEN 400 MG TABLET. PO SCH ×2 (00:47→12:32)
[2018-12-27] MEDS: oxyCODONE/APAP 5/325 1 TAB TABLET PO PRN ×4 (00:47→15:02)
[2018-12-27] MEDS ORDERED: DOCUSATE SODIUM 100 MG CAPSULE. PO PRN (04:45)
--- NOTE | 2018-12-27 07:40 | PDOC3 ---
OB DISCHARGE SUMMARY DATE OF ADMISSION: 12/25/18 DATE OF DISCHARGE: 12/27/18 REASON FOR ADMISSION: Onset of labor INTRAPARTUM PROCEDURES: Spontanous Vag Deliv DISCHARGE INFORMATION: Activity (ad eusebia), Diet (regular), Instructions (pelvic rest x 6 wks) HOSPITAL COURSE Term gestation delivered vaginally without complications. JAMIE RUBIO Jr, MD Dec 27, 2018 07:40
[2018-12-27] MEDS ORDERED: IBUP800T19 PO (07:42)
--- NOTE | 2018-12-27 07:43 | DISCH ---
DISCHARGE INSTRUCTIONS Condition on Discharge Condition on Discharge: Stable Activity After Discharge Activity Instructions for Disc: Activity as tolerated Lifting Instructions after Dis: No heavy lifting Driving Instructions after Dis: Do not drive today Diet after Discharge Diet after Discharge: Regular Contacting the [facility]ariel after DC Call your doctor for: Concerns you may have Follow-Up Follow up with: Dr. Del Rio in 6 wks JAMIE RUBIO Jr, MD Dec 27, 2018 07:42
[2018-12-27] MEDS ORDERED: PRENATAL MULTIVITAMIN TABLET. PO SCH (09:00)
[2018-12-27 09:11] VITALS: BP 123/69
[2018-12-27 15:00] VITALS: BP 115/56
--- NOTE | 2018-12-27 15:14 | NUR ---
Discharge Note: Pt. visited [facility] in room 382 with adoptive parents for a few minutes, then escorted by Neeta Urbina RN to ER entrance with visitors. Pt. denies needs or questions, discharged home with belongings. Neeta Urbina RN
== END 2018-12-27 15:14 | disposition home or self-care (01) | DRG 807 ==
LOC: OBSVTOIN 15:53 → 3 SO LND 15:53 → 3 NORTH 12-25 11:53
PROVIDERS: ADMIT Obstetrics & Gynecology; ATTEND Obstetrics & Gynecology
PROC: 10E0XZZ Delivery of Products of Conception, External Approach (ICD-10-PCS; principal; 2018-12-25)
PROC: 00HU33Z Insertion of Infusion Device into Spinal Canal, Percutaneous Approach (ICD-10-PCS; 2018-12-25)
PROC: 3E0R3BZ Introduction of Anesthetic Agent into Spinal Canal, Percutaneous Approach (ICD-10-PCS; 2018-12-25)
DX: O41.03X0 Oligohydramnios, third trimester, not applicable or unspecified (principal); Z37.0 Single live birth; Z3A.35 35 weeks gestation of pregnancy; L72.0 Epidermal cyst
CPT/HCPCS: 36415; 76816; 80307; 81001; 85014; 85025; 86592; 86703; 86762; 86850; 86900; 86901; 87086; 87340; 87491; 87591; 87653; J2001; J2540; J2590; J2795; J3010; J7120; 99285-25